=== PATIENT | female | born 1980 | race Caucasian/White ===

== ENCOUNTER → 2016-05-09 | Outpatient (CLI) | payer OTHER ==
--- NOTE | 2016-05-09 19:35 | US ---
EXAMINATION TYPE: US thyroid st tissue head/neck DATE OF EXAM: 05/09/2016 6:31 PM COMPARISON: 03/26/2013 CLINICAL HISTORY: follow up nodule. GLAND SIZE: Right Lobe: 4.7 x 1.8 x 1.3 cm Overall Parenchyma: homogenous Left Lobe: 4.3 x 1.6 x 1.5 cm Overall Parenchyma: homogeneous Isthmus Thickness: 2.4 mm NODULES RIGHT: # of nodules measured on right: 2 1. 1.0 X 0.8 x 0.4 cm hypoechoic solid nodule at the lower pole with well-defined margins; . This nodule is wider than tall and shows intranodular vascularity. Prior size: 1.1 x 0.5 x 0.7 cm 2. 0.5 X 0.3 x 0.2 cm cystic nodule at the upper pole with well-defined margins; . This nodule is w ider than tall and shows no intranodular vascularity. Prior size: not seen LEFT: # of nodules measured on left: 0 ISTHMUS: # of nodules measured in the isthmus: 0 TECHNOLOGIST IMPRESSION: Bilateral neck scanned, no abnormal lymphadenopathy noted. Two nodules see n in right thyroid lobe. IMPRESSION: There is a new 5 x 2 mm cyst in the upper pole of the right thyroid lobe compared to old exam. There is an oval-shaped hypoechoic nodule in the right lobe that is fairly stable. No dominant thyroid mass . No adverse change overall compared to old exam. I have very low suspicion of malignancy.
== END | disposition home or self-care (01) ==
LOC: RADUSMAIN 17:57
PROVIDERS: ATTEND Surgery
DX: E04.2 Nontoxic multinodular goiter (principal)
CPT/HCPCS: 76536

== ENCOUNTER → 2018-04-27 | Outpatient (CLI) | payer BC, OTHER ==
--- NOTE | 2018-04-29 16:14 | US ---
EXAMINATION TYPE: US thyroid st tissue head/neck DATE OF EXAM: 04/27/2018 COMPARISON: 02/16/2017 CLINICAL HISTORY: 38-year-old female E04.2 MULTINODULAR GOITER. TECHNIQUE: Multiple sonographic images of the thyroid gland are obtained. FINDINGS: GLAND SIZE: Right Lobe: 4.3 x 1.1 x 1.8 cm Overall Parenchyma: homogenous Left Lobe: 5.2 x 1.2 x 1.6 cm Overall Parenchyma: homogeneous Isthmus Thickness: 0.2 cm NODULES RIGHT: # of nodules measured on right: 2 1. 1.0 X 0.6 x 0.9 cm hypoechoic solid nodule at the lower pole with well-defined margins; . This nodule is wider than tall and shows intranodular vascularity. Prior size: 1.0 x 0.5 x 0.7 cm 2. 0.7 X 0.3 x 0.5 cm hypoechoic solid nodule at the upper pole with well-defined margins; . This n odule is wider than tall and shows no intranodular vascularity. Prior size: 0.5 x 0.2 x 0.4 cm LEFT: # of nodules measured on left: 0 ISTHMUS: # of nodules measured in the isthmus: 0 Bilateral neck scanned, no evidence of lymphadenopathy. Clinical Nutrition Manager notes: Nodules as described. IMPRESSION: 2 solid nodules on the right measuring up to 10 and 7 mm. The smaller 7 mm nodule shows minimal incre ase in size (7 x 3 x 5 mm now versus 5 x 2 x 4 mm, previously).
== END | disposition home or self-care (01) ==
LOC: RADUSWWP 16:40
PROVIDERS: ATTEND Family Medicine
DX: E04.2 Nontoxic multinodular goiter (principal)
CPT/HCPCS: 76536

== ENCOUNTER → 2018-11-06 | Outpatient (CLI) | payer BC ==
--- NOTE | 2018-11-07 11:33 | ECHOF ---
Referral Reason:R06.09 Dyspnea MEASUREMENTS -------- HEIGHT: 165.1 cm WEIGHT: 138.3 kg BP: IVSd: 1.1 cm (0.6 - 1.1) LVIDd: 3.4 cm (3.9 - 5.3) LVPWd: 1.1 cm (0.6 - 1.1) IVSs: 1.4 cm LVIDs: 1.6 cm LVPWs: 1.7 cm LAESV Index (A-L): 13.65 ml/m Ao Diam: 2.6 cm (2.0 - 3.7) AV Cusp: 2.3 cm (1.5 - 2.6) LA Diam: 2.6 cm (2.7 - 3.8) MV EXCURSION: 21.171 mm (> 18.000) MV EF SLOPE: 146 mm/s (70 - 150) EPSS: 0.6 cm MV E Alex: 0.84 m/s MV DecT: 166 ms MV A Alex: 0.62 m/s MV E/A Ratio: 1.35 RAP: 5.00 mmHg RVSP: 9.42 mmHg FINDINGS -------- Sinus rhythm. This was a technically adequate study. The left ventricular size is normal. Left ventricular wall thickness is normal. Overall left vent ricular systolic function is normal with, an EF between 55 - 60 %. The diastolic filling pattern is normal for the age of the patient 9.29. The right ventricle is normal in size. The left atrial size is normal. Normal LA size by volume 22+/-6 ml/m2. The right atrial size is normal. Interatrial and interventricular septum intact. The aortic valve is trileaflet and appears structurally normal. The mitral valve is normal. There is trace mitral regurgitation. The tricuspid valve appears structurally normal. Trace tricuspid regurgitation present. Right bret tricular systolic pressure is normal at < 35 mmHg. There is no pulmonic regurgitation present. The aortic root size is normal. Normal inferior vena cava with normal inspiratory collapse consistent with estimated right atrial pre ssure of 5 mmHg. The flow patterns, measured by Doppler, appear normal. There is no pericardial effusion. CONCLUSIONS -------- 1. Sinus rhythm. 2. This was a technically adequate study. 3. The left ventricular size is normal. 4. Left ventricular wall thickness is normal. 5. Overall left ventricular systolic function is normal with, an EF between 55 - 60 %. 6. The diastolic filling pattern is normal for the age of the patient 9.29 7. The right ventricle is normal in size. 8. The left atrial size is normal. 9. Normal LA size by volume 22+/-6 ml/m2. 10. The right atrial size is normal. 11. Interatrial and interventricular septum intact. 12. The aortic valve is trileaflet and appears structurally normal. 13. The mitral valve is normal. 14. There is trace mitral regurgitation. 15. The tricuspid valve appears structurally normal. 16. Trace tricuspid regurgitation present. 17. Right ventricular systolic pressure is normal at < 35 mmHg. 18. There is no pulmonic regurgitation present. 19. The aortic root size is normal. 20. Normal inferior vena cava with normal inspiratory collapse consistent with estimated right atrial pressure of 5 mmHg. 21. The flow patterns, measured by Doppler, appear normal. 22. There is no pericardial effusion. EXPERT WITNESS: Evelyn De Leon RDCS
== END | disposition home or self-care (01) ==
LOC: RADECHMAIN 15:34
PROVIDERS: ATTEND Family Medicine
DX: R06.09 Other forms of dyspnea (principal)
CPT/HCPCS: 93306

== ENCOUNTER → 2020-04-22 | Outpatient (CLI) | payer BC ==
--- NOTE | 2020-04-22 08:54 | US ---
EXAMINATION TYPE: US thyroid st tissue head/neck DATE OF EXAM: 04/22/2020 COMPARISON: 04/21/2020 CLINICAL HISTORY: 40-year-old female E04.1 thyroid nodule, R10.9 abdominal pain. TECHNIQUE: Multiple sonographic images of the thyroid gland are obtained. FINDINGS: GLAND SIZE: Right Lobe: 5.6 x 1.8 x 1.7 cm Overall Parenchyma: Homogeneous Left Lobe: 6.4 x 1.6 x 1.5 cm Overall Parenchyma: homogeneous Isthmus Thickness: 2 mm NODULES RIGHT: # of nodules measured on right: 1. 0.9 X 0.5 x 0.8 cm mildly lobulated solid, hypoechoic and circumscribed nodule in the lower pole without echogenic foci. Prior size: 1.0 x 0.6 x 0.9 cm 2. 0.4 X 0.2 x 0.3 cm hypoechoic nodule, which is wider than tall, with smooth margins, in the uppe r pole without echogenic foci. Prior size: 0.7 x 0.3 x 0.5 cm LEFT: # of nodules measured on left: 0 ISTHMUS: # of nodules measured in the isthmus: 0 Bilateral neck scanned, no evidence of lymphadenopathy. IMPRESSION: 2 nodules in the right lobe, stable to slightly smaller measuring 9 mm and 4 mm.
--- NOTE | 2020-04-22 09:06 | US ---
EXAMINATION TYPE: US abdomen complete DATE OF EXAM: 04/22/2020 COMPARISON: NONE CLINICAL HISTORY: 40-year-old female R10.9 abdominal pain. TECHNIQUE: Multiple sonographic images of the abdomen are obtained. FINDINGS: EXAM MEASUREMENTS: Liver Length: 18.4 cm Gallbladder Wall: 0.2 cm CBD: 0.4 cm Spleen: 9.8 cm Right Kidney: 10.9 x 4.9 x 5.0 cm Left Kidney: 10.8 x 5.2 x 5.0 cm Plastic Tile Layer notes: Morbidly obese patient, technically difficult, very limited study. Pancreas: Obscured by bowel gas Liver: Mildly enlarged, difficult to penetrate, moderately increased echogenicity. Gallbladder: wnl, as seen Evidence for sonographic Becerril's sign: no CBD: wnl Spleen: wnl Right Kidney: Inferior pole obscured by bowel gas, no obvious abnormality Left Kidney: Partially obscured by overlying bowel gas, portions visualized wnl Upper IVC: wnl Abd Aorta: Mostly obscured by overlying bowel gas, portions visualized wnl IMPRESSION: 1. Mild hepatomegaly (18.4 cm) with at least moderate hepatic steatosis. 2. No gallstones or biliary ductal dilatation.
== END | disposition home or self-care (01) ==
LOC: RADUSWWP 07:40
PROVIDERS: ATTEND Family Medicine
DX: K76.0 Fatty (change of) liver, not elsewhere classified (principal); E04.1 Nontoxic single thyroid nodule; R10.9 Unspecified abdominal pain
CPT/HCPCS: 76536; 76700

== ENCOUNTER → 2020-07-01 | Outpatient (CLI) | payer BC ==
--- NOTE | 2020-07-01 09:40 | P.HPOB ---
History of Present Illness H&P Date: 07/01/20 Chief Complaint: Patient is here for her routine gynecologic exam. This is a 40-year-old 012 with an LMP of 06/21/2020. The patient has been using condoms for control. She states her prison boyfriend is planning to get a vasectomy. She has noticed that she has been having premenstrual symptoms where she feels bloated especially after eating. She also feels flush during the premenstrual time. Menstrual periods have been regular every month lasting about 5 days with 2 days of heavier flow. She has also noticed increased cramping. Her bloating was more throughout the month last year and underwent an abdominal ultrasound done through Dr. Gallo's office. There were no significant findings. She states the bloating did improve and now only occurs during the premenstrual time. She states she had recent blood work done and believes thyroid testing was done. She was told she is prediabetic. Review of Systems She has a net weight gain of 18 pounds over the past 6 years. She states recently she has lost 20 pounds through [employer]. She denies respiratory, cardiac, or GI problems. Past Medical History Past Medical History: Hypertension, Thyroid Disorder Additional Past Medical History / Comment(s): Right thyroid nodule. Obesity. PAST FARM EQUIPMENT ENGINE MECHANIC HISTORY: She has no history of STDs. History of Any Multi-Drug Resistant Organisms: None Reported Past Surgical History: Adenoidectomy, Section, Tonsillectomy Additional Past Surgical History / Comment(s): section 2. Past Anesthesia/Blood Transfusion Reactions: No Reported Reaction Past Psychological History: Anxiety Smoking Status: Never smoker Past Alcohol Use History: Occasional (2 per month) Past Drug Use History: None Reported Additional History: She has been with her boyfriend since 2004 and lives with him. 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 She is been working from home during the covid pandemic. - Past Family History Mother Family Medical History: Cancer, Myocardial Infarction ([place]) Additional Family Medical History / Comment(s): thyroid - 2016 Medications and Allergies Home Medications Medication Instructions Recorded Confirmed Type No Known Home Medications 07/01/20 07/01/20 History Allergies Allergy/AdvReac Type Severity Reaction Status Date / Time No Known Allergies Allergy Verified 07/01/20 08:40 Exam Vital Signs Temp Pulse Resp BP Pulse Ox 07/01/20 08:41 98.3 F 91 18 146/84 100 Intake and Output 06/30/20 07/01/20 07/01/20 22:59 06:59 14:59 Other: Weight 134.263 kg Height 5 feet 5 inches, weight 296 pounds, BMI 49.3. This is a well-developed well-nourished heavyset white female who is alert and oriented times 3 in no acute distress. HEENT: Within normal limits. NECK: Supple without mass or thyromegaly. CHEST AND LUNGS: Clear to auscultation. HEART: Regular rate and rhythm. BREASTS: Are without mass or discharge. AXILLARY EXAM: Negative for adenopathy. BACK: Negative for CVA tenderness. ABDOMEN: Soft, obese, nontender, without palpable masses. PELVIC EXAM: Normal external genitalia. Cervix and vagina appear normal. There is no unusual discharge. There is no evidence of prolapse. The uterus is midposition, 8-10 week size and nontender. There are no palpable adnexal masses or tenderness. Bimanual examination is somewhat limited secondary to her size. RECTAL EXAM: negative for mass or tenderness and is negative for occult blood. EXTREMITIES: Nontender. IMPRESSION: 1. 40-year-old female with premenstrual symptoms including abdominal bloating who is using condoms for control. 2. Mildly enlarged uterus measuring approximately 8-10 weeks size. This may or may not be related to her abdominal bloating. 3. Obesity. 4. Elevated blood pressure. PLAN: 1. Pap smear cotest was performed. 2. Self breast awareness was discussed with the patient. 3. I have recommended screening mammogram and the order slip was given to the patient for this. She states she had one done about 3 years ago at [facility]. 4. We have discussed her elevated blood pressure. I have recommended she check her own blood pressure at home since she does have a blood pressure cuff. She will follow-up with Dr. Gallo for blood pressure elevations. 5. I have recommended a pelvic ultrasound to further evaluate her abdominal bloating and mildly enlarged uterus. 6. We have discussed the importance of good nutrition and regular exercise. I have also recommended that she limit sodium, simple sugar, and caffeine intake. 7. She was advised to return in one year for her annual well woman exam and as needed.
--- NOTE | 2020-07-08 10:55 | P.PN ---
Progress Note - Text Progress Note Date: 07/08/20 OUTPATIENT FOLLOW-UP NOTE TEST(S)/RESULTS: Test results from 07/01/2020 include negative Pap smear and negative high-risk HPV testing. METHOD OF NOTIFICATION: The patient was notified by phone. PATIENT COMMENTS: DIAGNOSIS: Negative Pap smear cotest. DISCUSSION: PLAN: The patient is scheduled for a pelvic ultrasound on 08/04/2020 as recommended on 07/01/2020.

== ENCOUNTER → 2020-09-08 | Outpatient (CLI) | payer BC ==
--- NOTE | 2020-09-08 16:27 | US ---
EXAMINATION TYPE: US pelvis complete transvag DATE OF EXAM: 09/08/2020 COMPARISON: NONE CLINICAL HISTORY: R14.0 Abdominal distension,N85.2 Hypertrophy of uterus. Bloating, LMP 2 weeks ago, TECHNIQUE: Transvaginal (TV) and Transabdominal (TA) . Transabdominal sonographic images of the pel vis were acquired. Transvaginal sonographic images were medically necessary to better assess the fol lowing anatomy: Uterus Date of LMP: 08/25/20 EXAM MEASUREMENTS: Uterus: 13.1 x 7.7 x 5.8 cm Endometrial Stripe: 1.0 cm Right Ovary: 3.9 x 3.1 x 2.5 cm Left Ovary: 4.0 x 2.7 x 1.9 cm 1. Uterus: Anteverted Enlarged, heterogeneous texture. 0.9 x 0.7 x 0.7 cm area within endometrium. This may represent a endometrial polyp. Endometrial hyperplasia or mass is not excluded. Direct gyne cologic evaluation is recommended. 2. Endometrium: 1 cm This is within normal limits for menstruating female. 3. Right Ovary: wnl 4. Left Ovary: wnl 5. Bilateral Adnexa: wnl 6. Posterior cul-de-sac: wnl Transvaginal exam suboptimal due to enlarged uterus. Ovaries not well seen on TV. IMPRESSION: 1. Enlarged heterogeneous uterus. 2. Within the endometrium there is a 9 mm polypoid structure. This may represents an endometrial poly p. Direct gynecologic evaluation is recommended. Endometrial hyperplasia or mass is not excluded.
--- NOTE | 2020-09-09 10:52 | P.PN ---
Progress Note - Text Progress Note Date: 09/09/20 OUTPATIENT FOLLOW-UP NOTE TEST(S)/RESULTS: Pelvic ultrasound done on 09/08/2020 done for abdominal distention and bloating with some uterine enlargement showed an enlarged heterogeneous uterus with a polypoid mass within the endometrium measuring up partially 9 mm. The ovaries were within normal limits. METHOD OF NOTIFICATION: She was notified by phone. PATIENT COMMENTS: The patient states her mother had a hysterectomy about at age 40 because of some type of endometrial growth which ended up being benign. DIAGNOSIS: Endometrial mass approximately 9 mm by ultrasound. Differential diagnosis will include endometrial polyp, small submucosal fibroid or other endometrial neoplasia. DISCUSSION: We have discussed the possibilities in my recommendation is for a referral to Dr. Richter for hysteroscopy with possible D&C. She will also discuss her other symptoms including somewhat heavy menstrual periods and we will discuss options with Dr. Richter. PLAN: As above.
--- NOTE | 2020-09-10 14:19 | MM ---
Reason for exam: screening (asymptomatic). Last mammogram was performed 4 years and 7 months ago. Physical Findings: A clinical breast exam by your physician is recommended on an annual basis and results should be correlated with mammographic findings. MG Screening Mammo w CAD Bilateral CC and MLO view(s) were taken. XCCL view(s) were taken of the left breast. Prior study comparison: January 26, 2016, mammogram, performed at [facility]. The breast tissue is heterogeneously dense. This may lower the sensitivity of mammography. No significant changes when compared with prior studies. ASSESSMENT: Negative, BI-RAD 1 RECOMMENDATION: Routine screening mammogram of both breasts in 1 year.
== END | disposition home or self-care (01) ==
LOC: RADMAMWWP 14:41
PROVIDERS: ATTEND Obstetrics & Gynecology
DX: Z12.31 Encounter for screening mammogram for malignant neoplasm of breast (principal); N84.0 Polyp of corpus uteri; D25.0 Submucous leiomyoma of uterus
CPT/HCPCS: 76830; 76856; 77067

== ENCOUNTER → 2020-12-15 | Outpatient (CLI) | payer BC ==
[2020-12-15 13:56] LABS: Basophils # (A) 0.1 k/uL (0-0.2); Basophils % (A) 1 %; Eosinophils # (A) 0.3 k/uL (0-0.7); Eosinophils % (A) 4 %; HCT 42.5 % (34.0-46.0); HGB 14.1 gm/dL (11.4-16.0); Lymphocytes # (A) 2.3 k/uL (1.0-4.8); Lymphocytes % (A) 29 %; MCH 27.5 pg (25.0-35.0); MCHC 33.2 g/dL (31.0-37.0); MCV 82.8 fL (80.0-100.0); Mean Platelet Volume 7.2; Monocytes # (A) 0.5 k/uL (0-1.0); Monocytes % (A) 6 %; Neutrophils # (A) 4.7 k/uL (1.3-7.7); Neutrophils % (A) 58 %; Platelet Count 311 k/uL (150-450); RBC 5.14 m/uL (3.80-5.40); RDW 13.7 % (11.5-15.5)
== END | disposition home or self-care (01) ==
LOC: LABPAT 13:08
PROVIDERS: ATTEND Obstetrics & Gynecology
DX: Z01.812 Encounter for preprocedural laboratory examination (principal); N84.0 Polyp of corpus uteri; I10 Essential (primary) hypertension
CPT/HCPCS: 36415; 85025; 93005

== ENCOUNTER 2020-12-21 09:39 | Day surgery (SDC) | payer BC ==
--- NOTE | 2020-12-15 11:16 | HP ---
HISTORY AND PHYSICAL REASON FOR ADMISSION: Outpatient surgery that is going to be scheduled for December 21. HISTORY OF PRESENT ILLNESS: This is a 40-year-old white female, 3, para 2-0-1-2, who presented for annual examination, reporting having menses. Pelvic examination on 09/08/2020 revealed a uterus 13.1 x 7.7 x 5.7 cm with an endometrial structure, likely a polyp, measuring 0.9 x 0.7 x 0.7 cm. She was sent from Dr. Carlton's care for surgical referral, regarding hysteroscopy, polypectomy, and D and C. We have reviewed this procedure in detail, reviewed all risks and benefits. PAST MEDICAL HISTORY: Significant for anxiety, hypertension, thyroid disorder. PAST SURGICAL HISTORY: section 2005, 2008. Adenoidectomy and tonsillectomy in the past. Past surgical history sections x2 for breech presentation, then repeat. ALLERGIES: None known. FAMILY HISTORY: Significant for heart attack, cancer. SOCIAL HISTORY: Is significant for negative tobacco, alcohol, or drug use, no vaping. The patient is employed as a customer support person. She is single. EXAM: Patient is 5 foot 4 inches, 287 pounds, BMI 49, pulse 75, blood pressure 126/90. HEENT exam reveals no thyromegaly, no cervical lymphadenopathy. CHEST: Clear to auscultation in all couch anteriorly and posteriorly. CARDIAC exam reveals regular rate and rhythm with no murmur, click, or rub. BREASTS are bilaterally symmetric to inspection with no skin dimpling, nipple discharge, axillary adenopathy, or discernible lesions or masses. ABDOMEN is moderately obese, no organosplenomegaly, soft and nontender. CERVIX is multiparous in appearance, uterus is mobile, small, symmetric, nontender, upper limits of normal to palpation. Adnexa are negative bilaterally. RECTAL exam reveals good sphincter tone, FIT negative stool, no obvious hemorrhoids. SKIN exam reveals no rashes or lesions, no areas of discoloration. Patient is alert and oriented x3 with intact judgment and insight. IMPRESSION: Menorrhagia, sonographic evidence of endometrial polyp, for surgical palliation. PLAN: We will proceed with hysteroscopy, polypectomy, D and C. We reviewed the risks of infection, bleeding, perforation or damage to cervix or uterus. We reviewed the risk of anesthesia, aspiration, nerve damage, or even . All questions answered. The ACOG pamphlet has also been given to the patient regarding this procedure. I believe she understands our discussion with no question or issue. FARHAD / MIKEN: [id number] /
[2020-12-16 11:06] VITALS: BMI 47.9
[~2020-12-21 09:39] MED LIST: DEXAMETHASONE SOD PHOSPHATE 4 MG/ML 1 ML VIAL IV ONE; HYDROmorphone 0.5 MG/0.5 ML SYRINGE IVP PRN; LACTATED RINGERS 1,000 ML IV SCH; ONDANSETRON 4 MG/2 ML VIAL IVP ONE; Pre Op ABX Message 1 EACH MISC MISCELLANE ONE
[2020-12-21] MEDS ORDERED: LIDOCAINE 1% INJ 10MG/ML (20 ML MDV) ONE (11:14)
[2020-12-21] MEDS ORDERED: MIDAZOLAM 2 MG/2 ML VIAL ONE (11:14)
[2020-12-21] MEDS ORDERED: SUCCINYLCHOLINE CHLORIDE 100 MG/5 ML SYR IV ONE (11:14)
[2020-12-21] MEDS ORDERED: KETOROLAC 15 MG/ML 1 ML VIAL ONE (11:14)
[2020-12-21] MEDS ORDERED: fentaNYL (PF) 50 MCG/ML 2 ML AMP ONE (11:14)
[2020-12-21] MEDS ORDERED: PROPOFOL 10 MG/ML 20 ML VIAL IV ONE (11:14)
--- NOTE | 2020-12-21 11:59 | P.OP ---
Date of Procedure: 12/21/20 Preoperative Diagnosis: Endometrial polyps Postoperative Diagnosis: Same Procedure(s) Performed: Hysteroscopy, D&C, polypectomy Anesthesia: JASE Surgeon: Alejandra Richter Estimated Blood Loss (ml): 25 IV fluids (ml): 200 Urine output (ml): 200 Pathology: other (Endometrial curettings and polyps) Condition: stable Disposition: PACU Operative Findings: Uterine depth of 13 cm. Negative adnexa to palpation. Endometrial polyps noted per hysteroscope Description of Procedure: Patient is brought to the operating room where general anesthetic is administered without difficulty. She's placed in the dorsal lithotomy position. The cervix, vagina, perineal bodies are all prepped and draped in usual sterile fashion. Examination under anesthesia reveals an anteverted uterus, upper ends of normal size, negative adnexa bilaterally. The appropriate timeout is performed to assure the proper patient and procedural identification. Bladder is drained for prostate 200 mL of clear yellow urine. Weighted speculum was placed into the vagina. The anterior lip of the cervix is grasped with a double-tooth tenaculum. Cervix sounds to a depth of 13 cm in the anteverted position. The cervix was gently and systematically dilated using Hanks dilators. Hysteroscope was then placed and the cavity is insufflated with sterile saline. There appears to be either abundant shaggy proliferative-type tissue versus polyps in the cavity. No obvious fibroids, septa, or defects. Hysteroscope was removed. A medium sharp curette is used and the cavity is curettaged in all 4 quadrants for a moderate to large amount of tissue including what appears to be polypoid tissue. Polyp forceps are introduced and a small amount of residual tissue is obtained. Hysteroscope was then replaced and the cavity appears to be thoroughly curettaged. Instrumentation is removed from the cervix and vagina. All sponge needle and enhancement counts are correct. Cervix is clean and dry. Toradol is given prior to leaving the operative suite. Patient is brought back to recovery room in very good condition with stable vital signs including blood pressure 133/82, pulse 67, 99% O2 saturation. Postoperative instructions are reviewed. Patient will follow-up with me in the office in 2 weeks.
[2020-12-21 12:01] VITALS: TEMP 98.5
[2020-12-21] MEDS ORDERED: MIDAZOLAM 2 MG/2 ML VIAL IVP ONE (12:28)
[2020-12-21 12:43] VITALS: RESP 16
[2020-12-21 13:03] VITALS: BP 139/87; PULSE 94
== END 2020-12-21 13:27 | disposition home or self-care (01) ==
LOC: OR 09:39
PROVIDERS: ATTEND Obstetrics & Gynecology
DX: N92.0 Excessive and frequent menstruation with regular cycle (principal); N84.0 Polyp of corpus uteri; I10 Essential (primary) hypertension; E04.1 Nontoxic single thyroid nodule; F41.9 Anxiety disorder, unspecified; E66.9 Obesity, unspecified; Z68.42 Body mass index [BMI] 45.0-49.9, adult
CPT/HCPCS: 81025; 88305; 58558; J2250; J1100; J2405; J2001; J3010; J1885; J0330; J2704

== ENCOUNTER → 2021-01-01 | Outpatient (CLI) | payer BC ==
--- NOTE | 2021-01-01 13:41 | US ---
EXAMINATION TYPE: US soft t tissue head/neck DATE OF EXAM: 01/01/2021 COMPARISON: NONE CLINICAL HISTORY: D49.89 neoplasm of unspecified behavior. Left medial supraclavicular thickening not ed by patient; patient stated had injury to this left neck area several years ago; history of lipomas US left medial supraclavicular area at patient's area of concern: lymph node noted at patient's area of palpable = 1.1 x 0.9 x 0.5cm. IMPRESSION: Lymph node identified at the site of clinical concern.
== END | disposition home or self-care (01) ==
LOC: RADUSWWP 13:03
PROVIDERS: ATTEND Family Medicine
DX: D49.89 Neoplasm of unspecified behavior of other specified sites (principal)
CPT/HCPCS: 76536

== ENCOUNTER → 2021-06-07 | Outpatient (CLI) | payer BC ==
--- NOTE | 2021-06-07 19:58 | US ---
EXAMINATION TYPE: US thyroid st tissue head/neck DATE OF EXAM: 06/07/2021 COMPARISON: US Thyroid 2019 CLINICAL HISTORY: R22.1 SWELLING, MASS LUMP IN NECK,E04.1 THYROID NODULE. Hx of thyroid nodules and e nlarged lymph node GLAND SIZE: Right Lobe: 5.4 x 1.4 x 1.7 cm Overall Parenchyma: homogenous Left Lobe: 5.0 x 1.4 x 1.6 cm Overall Parenchyma: homogeneous Isthmus Thickness: 0.21 cm NODULES RIGHT: # of nodules measured on right: 1 measured, subcentimeter nodule noted in upper pole. 1. 1.1x0.6x 0.8cm mid lateral, solid or almost completely solid, hypoechoic nodule, which is wider t santo tall, with smooth margins, with echogenic foci. Prior size: 0.9x0.5x 0.8 cm LEFT: # of nodules measured on left: 0 ISTHMUS: # of nodules measured in the isthmus: 0 Bilateral neck scanned, no evidence of lymphadenopathy. Left supraclavicular area scanned as a follow up at area of palp; lymph node measuring 1.9 x 0.5 x 0 .9 cm. Homogeneous normal-sized thyroid redemonstrated with stable 1.1 cm lower pole hypoechoic solid nodule . No new nodules are evident bilaterally. Prominent but elongated benign appearing left supraclavicular lymph node at site of palpable abnormal ity. IMPRESSION: Stable right-sided thyroid nodule. No definitive abnormal adenopathy or suspicious new no dules.
== END | disposition home or self-care (01) ==
LOC: RADUSWWP 17:00
PROVIDERS: ATTEND Otolaryngology
DX: E04.1 Nontoxic single thyroid nodule (principal)
CPT/HCPCS: 76536

== ENCOUNTER 2021-06-28 08:54 | Day surgery (SDC) | payer BC ==
[2021-06-28] MEDS ORDERED: ALPRAZolam 0.5 MG TAB PO PRN (09:11)
[2021-06-28 09:25] VITALS: TEMP 98.8
[2021-06-28 10:23] VITALS: RESP 16
--- NOTE | 2021-06-28 10:31 | US ---
ULTRASOUND GUIDED FNA THYROID BIOPSY: CLINICAL HISTORY: Left supraclavicular lymph node requested for FNA FINDINGS: The procedure was explained to the patient. The risks, complications, benefits and alternatives were discussed and any questions were answered. Informed consent was obtained. Patient was placed supin e on the ultrasound table and prepped and draped in the usual sterile fashion. Utilizing a 25 gauge needle, four passes were made into the requested a left supraclavicular lymph node. Patient was stable throughout the procedure. Pathology is pending. All elements of maximal barrier technique were utilized. IMPRESSION: 1. Successful ultrasound guided FNA left supraclavicular lymph node biopsy.
[2021-06-28 10:41] VITALS: BP 115/66; PULSE 84
== END 2021-06-28 10:43 | disposition home or self-care (01) ==
LOC: RADPROMAIN 08:54
PROVIDERS: ATTEND Otolaryngology
DX: R22.1 Localized swelling, mass and lump, neck (principal)
CPT/HCPCS: 10005; 88173; 88305